=== PATIENT | male | born 1995 | race Two or more races ===

== ENCOUNTER 2022-01-23 22:17 | Emergency (ER) | payer SELFPAY ==
[~2022-01-23] VITALS: Ht 170.2 cm; Wt 74.8 kg
[2022-01-23 22:37] VITALS: BP 119/75
--- NOTE | 2022-01-23 22:43 | NUR ---
AFTER TRIAGE, PT DOES NOT WANT TO BE SEEN BY
== END 2022-01-23 23:43 | disposition left against medical advice (07) ==
LOC: ER 23:02
DX: Z53.21 Procedure and treatment not carried out due to patient leaving prior to being seen by health care provider (principal)